=== PATIENT | male | born 1950 | race Caucasian/White ===

== ENCOUNTER → 2018-08-31 | Outpatient (CLI) | payer OTHER ==
[~2018-08-31] MED LIST: IOHEXOL 300 mgI/ML (OMNIPAQUE) 150 ML BTL IV ONE
== END ==
LOC: FIMAGING 09:37
PROVIDERS: ATTEND Surgery
DX: I71.4 Abdominal aortic aneurysm, without rupture (principal); K42.9 Umbilical hernia without obstruction or gangrene
CPT/HCPCS: 74175; Q9967; 82565-PO

== ENCOUNTER → 2018-09-13 | Outpatient (CLI) | payer OTHER | LOC: FIMAGING 11:55 | PROVIDERS: ATTEND Surgery | DX: I71.4 Abdominal aortic aneurysm, without rupture (principal) ==

== ENCOUNTER 2018-11-10 10:25 | Inpatient (IN) | payer OTHER ==
--- NOTE | 2018-11-03 10:16 | GHP ---
[f rep st] PREOP HISTORY AND PHYSICAL DATE OF ADMISSION: 11/10/2018 CHIEF COMPLAINT: Abdominal aortic aneurysm. HISTORY OF PRESENT ILLNESS: The patient is a 67-year-old male with a history of aortic and mitral va lve replacements, who presents for surgical evaluation of a AAA that was incidentally found on abdomi nal CT scan for a ventral hernia. The CT scan shows an infrarenal AAA measuring 7.6 x 7.6 cm. He gilman s seen Dr. Cerda, who believes he is a candidate for endovascular repair. In addition to the patient's 2 cardiac valve replacements, he also has a cardiac history of atrial fibrillation. He takes Coumad in. He denies abdominal pain, chest pain, or shortness of breath. PAST MEDICAL HISTORY: Peripheral vascular disease, atrial fibrillation. PAST SURGICAL HISTORY: Aortic valve replacement, mitral valve replacement, cholecystectomy, femoral- popliteal bypass graft. MEDICATIONS: Coumadin 5 mg. The patient also takes Flomax, Bentyl, gabapentin, and triamcinolone cr eam. ALLERGIES: No known drug allergies. SOCIAL HISTORY: This patient is a nonsmoker. He drinks alcohol occasionally. REVIEW OF SYSTEMS: Ten-point review of systems was performed and is negative, aside from what is in the HPI. PHYSICAL EXAMINATION: GENERAL: Well appearing, well dressed, 67-year-old male in no acute distress. HEENT: Normocephalic, atraumatic. No gross hearing deficits. Mucous membranes moist. Pupils are equal and round. NECK: Supple, trachea is midline, no carotid bruits. CARDIAC: Irregularly irreg ular, mid-systolic click murmur. CHEST: Clear to auscultation bilaterally, no crackles, rales or rh onchi. ABDOMEN: Obese, soft, nondistended, nontender, supraumbilical ventral hernia present. No pa lpable pulsatile mass. INTEGUMENTARY: Warm and dry, no rashes or jaundice. MUSCULOSKELETAL: Moves all extremities equally. PSYCHIATRIC: Appropriate mood and affect. NEUROLOGIC: Alert and oriente d x3. IMPRESSION AND PLAN: The patient is a 67-year-old male with a 7.6 x 7.6 cm infrarenal abdominal aort ic aneurysm that needs to be repaired. He is a candidate for endovascular repair. He has received c ardiac clearance prior to surgery. 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 We have discussed all risks and options. Risks of surgery include, but are not limited to, infection, bleeding, need for open repair, aneurysm rupture, heart attack, and . Patient understands and wishes to procee d. We will proceed with bilateral femoral artery exposures for endovascular abdominal aortic aneurys m repair. /[id number]/MODL
[2018-11-10] MEDS ORDERED: ceFAZolin 2 GM/DEXTROSE 100 ML IV ONE (10:44)
[2018-11-10] MEDS ORDERED: LR 1,000 ML IV ONE (10:47)
[2018-11-10 11:38] LABS: INR 1.16 (0.83-1.16); PROTIME(PATIENT) 14.3 SEC (12.0-15.0)
--- NOTE | 2018-11-10 12:00 | PDHPUP ---
History & Physical Update H&P update statement: This history and physical update is based on an assessment of the patient which was completed after admission or registration (within 24 hours), but prior to the surgery/procedure. H&P update: H&P reviewed & patient examined, no change in patient's condition since H&P completed
[2018-11-10] MEDS ORDERED: IOPAMIDOL (ISOVUE-300) 100 ML BTL ONE ×2 (12:43→17:43)
[2018-11-10] MEDS ORDERED: THROMBIN (BOVINE) 20,000 UNIT VIAL TP ONE (12:45)
[2018-11-10] MEDS ORDERED: BUPIVACAINE 0.5% 30 ML SDV ONE (12:45)
--- NOTE | 2018-11-10 12:45 | PDANEPAE ---
ANE History of Present Illness AAA ANE Past Medical History - Cardiovascular History Hx Hypertension: No Hx Arrhythmias: Yes Hx Chest Pain: No Hx Coronary Artery / Peripheral Vascular Disease: No Hx CHF / Valvular Disease: No Hx Palpitations: No Cardiovascular History Comment: MITRAL & AORTIC VALVE REPLACEMENTS. MILD ARRHYTHMIA - Pulmonary History Hx COPD: No Hx Asthma/Reactive Airway Disease: No Hx Recent Upper Respiratory Infection: No Hx Oxygen in Use at Home: No Hx Sleep Apnea: No Sleep Apnea Screening Result - Last Documented: Positive - Neurologic History Hx Cerebrovascular Accident: No Hx Seizures: No Hx Dementia: No - Endocrine History Hx Diabetes: No Obesity: no - Renal History Hx Renal Disorders: No Renal History Comment: L NON FUNCTIONING KIDNEY. R FUNCTIONING KIDNEY - Liver History Hx Hepatic Disorders: No Hepatic History Comment: SO - Neurological & Psychiatric Hx Hx Neurological and Psychiatric Disorders: No - Cancer History Hx Cancer: No - Congenital Disorder History Hx Congenital Disorders: No - GI History GERD: no Hx Gastrointestinal Disorders: No - Other Health History Other Health History: NEG - Chronic Pain History Chronic Pain: No - Surgical History Prior Surgeries: CATARACTS. CHOLECYSTECTOMY. HERNIA REPAIR X2. BYPASS ARTERIAL GRAFT TO RLE. MITRAL/AORTIC VALVE REPACEMENTS. 2000 & 2007 ANE Review of Systems Review of systems is: negative Review of Systems: - Exercise capacity METS (RN): 4 METS ANE Patient History - Allergies Allergies/Adverse Reactions: No Known Allergies Allergy (Unverified 03/18/16 13:20) - Home Medications Home medications: home medication list seen and reviewed Home Medications: Tamsulosin HCl [Flomax 0.4 MG (*)] 0.4 mg PO DAILY 03/18/16 [Last Taken 11/09/18 ] Warfarin Sodium [Coumadin 5MG (*)] 5 mg PO SUMOTUWETHFR 03/18/16 [Last Taken ] Warfarin Sodium [Coumadin 5MG (*)] 7.5 mg PO SA 03/18/16 [Last Taken 11/07/18] Aspirin 10/30/18 [Last Taken 11/03/18] Bentyl 10 MG (*) 10/30/18 [Last Taken 11/09/18] Gabapentin 10/30/18 [Last Taken 11/09/18] - NPO status NPO Since - Liquids (Date): 11/10/18 NPO Since - Liquids (Time): 06:30 NPO Since - Solids (Date): 11/09/18 NPO Since - Solids (Time): 19:30 - Anes Hx Anes Hx: no prior problems - Smoking Hx Smoking Status: Never smoked Marijuana use: No - Alcohol Use Alcohol Use: Rarely - Family Anes Hx Family Anes Hx: none ANE Labs/Vital Signs - Vital Signs Blood Pressure: 125/91 Heart Rate: 69 Respiratory Rate: 13 O2 Sat (%): 94 Height: 193.04 cm Weight: 111.13 kg ANE Physical Exam - Airway Neck exam: FROM Mallampati Score: Class 2 Mouth exam: normal dental/mouth exam - Pulmonary Pulmonary: no respiratory distress, clear to auscultation - Cardiovascular Cardiovascular: regular rate and rhythym, no murmur, rub, or gallop - ASA Status ASA Status: III ANE Anesthesia Plan Anesthesia Plan: general endotracheal anesthesia Lines/Monitors: arterial line, central line
[2018-11-10] MEDS ORDERED: MIDAZOLAM 2 MG/2 ML VIAL IVP ONE (12:48)
[2018-11-10] MEDS ORDERED: PROPOFOL 200 MG/20 ML VIAL ONE (13:16)
[2018-11-10] MEDS ORDERED: fentaNYL 100 MCG/2 ML INJ ONE ×2 (13:16→14:57)
[2018-11-10] MEDS ORDERED: ROCURONIUM 50 MG/5 ML VIAL ONE (13:17)
[2018-11-10] MEDS ORDERED: LIDOCAINE 2% 5 ML SDV ONE (13:17)
[2018-11-10] MEDS ORDERED: MIDAZOLAM 2 MG/2 ML VIAL ONE (13:38)
[2018-11-10] MEDS ORDERED: HEPARIN 10,000 UNIT/10 ML MDV (1,000 UNIT/ML) ONE (15:19)
[2018-11-10] MEDS ORDERED: ONDANSETRON 4 MG/2 ML VIAL ONE (17:15)
[2018-11-10] MEDS ORDERED: DEXAMETHASONE 4 MG/ML VIAL ONE (17:15)
[2018-11-10] MEDS ORDERED: PROTAMINE SULFATE 50 MG/5 ML VIAL IVP ONE (18:48)
[2018-11-10] MEDS ORDERED: LACTULOSE 20 GM/30 ML UDCUP PO PRN (19:02)
[2018-11-10] MEDS ORDERED: POLYETHYLENE GLYCOL 3350 17 GM PKT PO PRN (19:02)
[2018-11-10] MEDS ORDERED: BISACODYL 10 MG SUPP PR PRN (19:02)
[2018-11-10] MEDS ORDERED: MAGNESIUM HYDROXIDE 30 ML UDCUP PO PRN (19:02)
[2018-11-10] MEDS ORDERED: ONDANSETRON DISINTEGRATING 4 MG TAB PO PRN (19:02)
--- NOTE | 2018-11-10 19:25 | PDRADPN ---
Radiology Procedure Note Date of Procedure: 11/10/18 Radiologist: Mami Cerda Anesthesia: GET(General Endotracheal) Pre-op Diagnosis: AAA Post-op Diagnosis: SAME Indication: 7.5cm aneurysm Procedure: Stentgraft repair with anchors Finding(s): challenging anatomy. Inf/Abcess present in the surg proc area at time of surgery?: No
[2018-11-10] MEDS ORDERED: LR 500 ML IV PRN (19:41)
[2018-11-10] MEDS ORDERED: HYDROmorphONE/DILAUDID 1 MG/ML INJ IVP PRN (19:41)
[2018-11-10] MEDS ORDERED: epHEDrine SULFATE 10 MG/ML SYR IVP PRN (19:41)
[2018-11-10] MEDS ORDERED: ONDANSETRON 4 MG/2 ML VIAL IVP PRN (19:41)
[2018-11-10] MEDS ORDERED: NALOXONE HCL 0.4 MG/ML INJ IVP PRN (19:41)
--- NOTE | 2018-11-10 19:44 | POSTANESTH ---
Post Anesthetic Evaluation Cardiovascular Status: Normal, Stable Respiratory Status: Normal, Stable Level of Consciousness/Mental Status: Can Participate in Eval Pain Control: Adequate, Prn Tx Ordered Nausea/Vomiting Control: Adequate, Prn Tx Ordered Complications Possibly Related to Anesthesia: None Noted
[2018-11-10] MEDS ORDERED: NS 1,000 ML IV SCH (19:45)
[2018-11-10] MEDS: fentaNYL 100 MCG/2 ML INJ IVP PRN ×2 (20:23→20:55)
[2018-11-10] MEDS: NS 1,000 ML IV SCH (20:56)
--- NOTE | 2018-11-10 21:00 | PDMN ---
Medical Necessity Medical necessity: Pt meets IP criteria as of 11/10/2018 per MD and [facility] [place] S-131 ( Abdominal Aortic Aneurysm, Endovascular Repair); Medicare IP only procedure.
[2018-11-10] MEDS: HYDROmorphONE/DILAUDID 1 MG/ML INJ IVP PRN ×2 (21:41→23:39)
[2018-11-10] MEDS: ONDANSETRON 4 MG/2 ML VIAL IVP PRN (21:50)
[2018-11-10] MEDS: SENNOSIDES/DOCUSATE SODIUM TAB PO SCH (23:09)
--- NOTE | 2018-11-11 00:17 | PDGENHP ---
History and Physical - Chief Complaint AAA repair - History of Present Illness 67 yo M w/ hx of AF, mechanical mitral and aortic valve replacements, and AAA admitted for AAA repair. Hospital medicine is consulted for pedro pablo-operative management. Per report, the patient experienced about 1 L EBL during the procedure and did have intra-procedural hypotension. A post-procedure Hgb was 12.2; Hgb was 15.1 prior to surgery. During my evaluation the patient has normal blood pressure and heart rate. He is in atrial fibrillation with a pulse in the 50s. He denies symptoms aside from mild back pain. Bilateral groin sites do not demonstrate evidence of bleeding or hematoma. Of note, his last dose of anticoagulation was Lovenox on evening. His usual goal INR is 2.5-3.5 for hx of mechanical AV and MV. He currently denies chest pain. Case discussed with Dr. Mcgill; records reviewed and summarized above. History Information - Allergies/Home Medication List Allergies/Adverse Reactions: No Known Allergies Allergy (Unverified 03/18/16 13:20) Home Medications: Tamsulosin HCl [Flomax 0.4 MG (*)] 0.4 mg PO DAILY 03/18/16 [Last Taken 11/09/18 ] Warfarin Sodium [Coumadin 5MG (*)] 5 mg PO SUMOTUWETHSA@16 03/18/16 [Last Taken 11/06/18] Warfarin Sodium [Coumadin 5MG (*)] 7.5 mg PO FR@16 03/18/16 [Last Taken 11/03/18 ] Bentyl 10 MG (*) 20 mg PO DAILY PRN 10/30/18 [Last Taken Unknown] Gabapentin [Neurontin 300 MG (*)] 300 mg PO BID 10/30/18 [Last Taken 11/09/18] Enoxaparin [Lovenox 120 MG (*)] 120 mg SQ BID 11/10/18 [Last Taken 11/09/18] I have personally reviewed and updated: family history, medical history - Past Medical History atrial fibrillation - Surgical History Additional surgical history: Mechanical aortic valve 2000. Mechanical mitral valve 2010. AAA repair 11/10/18 - Family History Positive for: CAD - Social History Smoking Status: Never smoked Alcohol Use: Rarely Review of Systems Review of Systems: ROS: 10pt was reviewed & negative except for what was stated in HPI & below Physical Exam Physical Exam: Temp Pulse Resp BP Pulse Ox 36.4 C 55 L 13 127/53 H 94 11/10/18 23:30 11/10/18 23:30 11/10/18 23:30 11/10/18 23:30 11/10/18 23:30 O2 (L/minute) 4 Constitutional: appears nourished Eyes: PERRL, EOMI, icteric sclera Ears, Nose, Mouth, Throat: moist mucous membranes, no oral mucosal ulcers Cardiovascular: irregularly irregular, other (Mechanical heart sounds) Respiratory: no respiratory distress, clear to auscultation Gastrointestinal: normoactive bowel sounds, soft, non-tender abdomen Skin: warm, other (Bilateral groin sites without signs of bleeding or hematoma) Musculoskeletal: full muscle strength, no muscle tenderness Neurologic: AAOx3, CN II-XII Intact Psychiatric: interacting appropriately, not anxious Lab Data & Imaging Review 11/10/18 18:52 11/10/18 18:52 Hgb 12.2 g/dL (13.7-17.5) L 11/10/18 18:52 Hct 38.6 % (40.0-51.0) L 11/10/18 18:52 PT 14.3 SEC (12.0-15.0) 11/10/18 11:15 INR 1.16 (0.83-1.16) 11/10/18 11:15 Sodium 135 mEq/L (135-145) 11/10/18 18:52 Potassium 5.0 mEq/L (3.5-5.2) 11/10/18 18:52 Chloride 108 mEq/L (97-110) 11/10/18 18:52 Carbon Dioxide 23 mEq/l (22-31) 11/10/18 18:52 Anion Gap 4 mEq/L (6-14) L 11/10/18 18:52 BUN 20 mg/dL (7-23) 11/10/18 18:52 Creatinine 1.2 mg/dL (0.7-1.3) 11/10/18 18:52 Estimated GFR 60 11/10/18 18:52 Glucose 123 mg/dL (70-100) H 11/10/18 18:52 Calcium 7.4 mg/dL (8.5-10.4) L 11/10/18 18:52 Total Bilirubin 0.5 mg/dL (0.1-1.4) 11/10/18 18:52 AST 37 IU/L (17-59) 11/10/18 18:52 ALT 44 IU/L (21-72) 11/10/18 18:52 Alkaline Phosphatase 63 IU/L (38-126) 11/10/18 18:52 Total Protein 5.8 g/dL (6.3-8.2) L 11/10/18 18:52 Albumin 2.7 g/dL (3.5-5.0) L 11/10/18 18:52 Patient ABO/Rh O POSITIVE 11/06/18 11:10 Antibody Screen NEGATIVE 11/06/18 11:10 Imaging Review: Imaging Impressions Vascular Stent Procedure 11/10/18 00:00 Impression: 1. Stent-graft repair of infrarenal abdominal aortic aneurysm using 4-piece Endurant device, as above. 2. Deployment of 6 aortic anchors. 3. Challenging case to obtain seal because of anatomy. Abdominal Angiography 11/10/18 13:00 Impression: 1. Stent-graft repair of infrarenal abdominal aortic aneurysm using 4-piece Endurant device, as above. 2. Deployment of 6 aortic anchors. 3. Challenging case to obtain seal because of anatomy. Visualized and Interpreted EKG results: Yes EKG Interpretation: Positive for: other (Afib) Assessment & Plan Assessment: 67 yo M w/ hx of AF, mechanical mitral and aortic valve replacements, and AAA admitted for AAA repair. Plan: 1. AAA s/p repair - S/p stent-graft repair of infrarenal abdominal aortic aneurysm using 4-piece Endurant device on 11/[address] Cerda. He did suffer from intra-procedural hypotension but has been hemodynamically stable since arrival to the ICU. - Management per IR - Currently hemodynamically stable - Repeat CBC in the morning as long as clinically stable 2. Hx mechanical AV and MV - Patient usually maintained on warfarin with a goal INR of 2.5-3.5. This has been on hold since 11/03. He has been bridged with therapeutic Lovenox since with last dose of this PM. It is strongly indicated to restart therapeutic anticoagulation as soon as possible. - Will plan on restarting Lovenox tomorrow morning, will discuss with Dr. Cerda - Also reasonable to restart warfarin, will ask pharmacy to dose 3. Hx AF - Currently rate controlled without medication. - Monitor on telemetry Diet - Regular Code - Full PPx - SCDs, therapeutic AC Dispo - Admit under inpatient status
[2018-11-11] MEDS: HYDROmorphONE/DILAUDID 1 MG/ML INJ IVP PRN ×3 (01:13→14:55)
[2018-11-11 04:50] LABS: PLATELET COUNT 167 10^3/uL (150-400)
[2018-11-11] MEDS: NS 1,000 ML IV SCH (04:50)
[2018-11-11 06:00] LABS: INR 1.17 (0.83-1.16); PROTIME(PATIENT) 14.4 SEC (12.0-15.0)
[2018-11-11] MEDS: OXYCODONE/APAP 5/325 TAB PO PRN ×4 (09:00→22:02)
[2018-11-11] MEDS: SENNOSIDES/DOCUSATE SODIUM TAB PO SCH ×2 (09:55→22:03)
[2018-11-11] MEDS: ENOXAPARIN 120 MG/0.8 ML SYR SC SCH ×2 (09:55→22:02)
--- NOTE | 2018-11-11 12:42 | HOSPPROG ---
Hospitalist Progress Note Assessment/Plan: 67 yo M w/ hx of AF, mechanical mitral and aortic valve replacements, and AAA admitted for AAA repair. #AAA s/p repair: S/p stent-graft repair of infrarenal abdominal aortic aneurysm using 4-piece Endurant device on 11/[address] Cerda. He did suffer from intra- procedural hypotension but has been hemodynamically stable since. - Management per IR - PT/OT #Hx mechanical AV and MV - Restart anticoagulation today w/lovenox bridge to warfarin with INR goal 2.5-3.5 - Recheck H/H in AM #Chronic atrial fibrillation: Rates controlled. - Anticoagulation as above #Chest pain: Non-ischemic ECG. Tender to palpation - likely MSK. Diet - Regular Code - Full PPx - therapeutic AC Dispo - Switch to inpatient, transfer to floor Subjective: Back is sore. Groin sites hurt a little but nothing impressive. He is having some chest pain that hurts when he pushes his chest. Objective: Vital Signs Temp Pulse Resp BP Pulse Ox 36.4 C 71 19 136/78 H 94 11/11/18 07:00 11/11/18 12:00 11/11/18 12:00 11/11/18 12:00 11/11/18 12:00 Laboratory Results 11/11/18 04:22 11/11/18 04:22 11/10/18 11/11/18 11/12/18 05:59 05:59 05:59 Intake Total 875 Output Total 1725 450 Balance -850 -450 PT 14.4 SEC (12.0-15.0) 11/11/18 04:22 INR 1.17 (0.83-1.16) H 11/11/18 04:22 - Physical Exam Constitutional: no apparent distress Eyes: PERRL, anicteric sclera, EOMI Ears, Nose, Mouth, Throat: moist mucous membranes, hearing normal, ears appear normal, no oral mucosal ulcers Cardiovascular: systolic murmur (audible clicks), irregularly irregular, No JVD , No edema Respiratory: no respiratory distress, no rales or rhonchi, clear to auscultation Gastrointestinal: normoactive bowel sounds, soft, non-tender abdomen, no palpable masses Genitourinary: no bladder fullness, no bladder tenderness, no renal bruits Skin: no rashes or abrasions, no fluctuance, no induration Musculoskeletal: full muscle strength, no muscle tenderness, normal joint ROM Neurologic: AAOx3 Psychiatric: interacting appropriately ICD10 Worksheet Patient Problems: Problems Problem Status Onset Cellulitis of right lower extremity Acute Mass of right thigh Acute
--- NOTE | 2018-11-11 12:42 | ASMTCMCOM ---
CM Note CM Note Notes: Pt is a 67 yo M who presents with Abdominal Aoritc Aneurysm and underwent endovascular repair. Pt's family at bedside. PT/OT ordered. Discharge needs TBD at this time, CM to follow. Plan: TBD Date Signed: 11/11/2018 12:41 PM Electronically Signed By:MITRA Barba
[2018-11-11] MEDS: ONDANSETRON 4 MG/2 ML VIAL IVP PRN (14:56)
--- NOTE | 2018-11-11 15:27 | CPEKG ---
Test Reason : OPEN Blood Pressure : / mmHG Vent. Rate : 062 BPM Atrial Rate : 000 BPM P-R Int : 276 ms QRS Dur : 118 ms QT Int : 438 ms P-R-T Axes : 000 049 073 degrees QTc Int : 445 ms Atrial fibrillation Nonspecific intraventricular conduction delay Low voltage, extremity leads Confirmed by Tammie Yuen ([id number]) on 11/11/2018 3:27:18 PM Referred By: Mami Cerda Confirmed By:Tammie Yuen
[2018-11-11] MEDS ORDERED: WARFARIN SODIUM 7.5 MG TAB PO SCH (16:00)
[2018-11-11] MEDS: GABAPENTIN 300 MG CAP PO SCH (22:02)
[2018-11-12] MEDS: OXYCODONE/APAP 5/325 TAB PO PRN (02:46)
[2018-11-12 05:31] LABS: INR 1.22 (0.83-1.16); PROTIME(PATIENT) 14.9 SEC (12.0-15.0)
[2018-11-12] MEDS ORDERED: TAMSULOSIN HCL 0.4 MG CAP PO SCH (09:00)
[2018-11-12] MEDS: SENNOSIDES/DOCUSATE SODIUM TAB PO SCH (09:52)
[2018-11-12] MEDS: GABAPENTIN 300 MG CAP PO SCH (09:52)
[2018-11-12] MEDS: ENOXAPARIN 120 MG/0.8 ML SYR SC SCH (09:52)
[2018-11-12 11:49] VITALS: BP 139/77
--- NOTE | 2018-11-12 13:49 | PDDCSUM ---
Discharge Summary Discharge Summary: Date of Admission: 11/10/2018 Date of Discharge: 11/12/2018 Procedures: 1. Bilateral femoral cutdowns (Dr Gregorio Pena) 2. Endovascular stent-graft repair of infrarenal AAA using 4-piece Endurant device with deployment of 6 aortic anchors (Dr Mami Cerda) 3. Endotracheal intubation Discharge Diagnoses: 1. Infrarenal AAA s/p endovascular repair 2. Intra-operative hypotension, resolved 3. Urinary retention, resolved 4. Acute respiratory failure, resolved 5. Mechanical aortic and mitral valves on chronic anticoagulation 6. Chronic atrial fibrillation 7. Mild post-operative anemia 8. Peripheral vascular disease s/p remote femoral-popliteal bypass graft 9. Ventral hernia Brief Hospital Course: 67 yo M w/ hx of AF, mechanical mitral and aortic valve replacements, and AAA ( infrarenal, 7.6x7.6cm) that was incidentally found on evaluation of a ventral hernia who was admitted for AAA repair. He was felt to be a candidate for endovascular repair. He was bridged off his warfarin. He underwent above listed procedure with Dr Cerda on 11/10. The case was challenging due to his anatomy and lasted about 6 hours. Intra-operatively he developed transient hypotension and bradycardia. These resolved once he was admitted to the ICU. He was extubated successfully and weaned off supplemental oxygen. His peter was removed and he was urinating spontaneously. Lovenox and warfarin were restarted on 11/11/2018. He did not develop any bleeding and his hematocrit remained stable. PT and OT cleared him for home. He was given prescription for Lovenox bridge. He was tolerating PO and moving his bowels prior to discharge. Medications: Please refer to EMR for complete list. I wrote him prescriptions for Lovenox 120mg subQ BID x7 days as well as Percocet 5/325mg Q6h PRN #12 with 0 refills. Follow Up Plan: 1. Dr Pena within 1 week for staple removal and surgical incision site follow up 2. Routine INR checks to determine when safe to discontinue lovenox Physical Exam: Vitals and telemetry reviewed, afebrile and no significant arrhythmias. Alert and oriented, incision sites at groin c/d/i without hematoma or bruit, irregularly irregular rhythm with controlled rates, lungs clear, abdomen soft and nt, LLE edema (chronic).
--- NOTE | 2018-11-12 14:59 | ASMTDCNOTE ---
Case Management Discharge Discharge Order Complete? Answers: Yes Patient to Obtain Answers: Independently Medications Transportation Arranged Answers: Family/Friends Discharge Comments Notes: Patient medically cleared for independent discharge to home. No needs identified. CM available should other needs arise. Date Signed: 11/12/2018 02:58 PM Electronically Signed By:Radha Loredo RN
--- NOTE | 2018-11-13 22:35 | GOP ---
[f rep st] OPERATIVE REPORT DATE OF OPERATION: 11/10/2018 SURGEON: Gregorio Pena MD PREOPERATIVE DIAGNOSIS: Abdominal aortic aneurysm. POSTOPERATIVE DIAGNOSIS: Abdominal aortic aneurysm. PROCEDURE PERFORMED: 1. Bilateral common femoral artery exposures. 2. Bilateral common femoral artery repairs. FINDINGS: The patient was found to have large common femoral arteries bilaterally. On the right praveena e, the profunda femoris could not be identified. He had previous surgery on that side and a fair leodan unt of aneurysmal dilatation of the artery near the anastomosis. DESCRIPTION OF PROCEDURE: Patient was taken to the operating room where he received a satisfactory g eneral endotracheal anesthesia, placed in a supine position, prepped and draped in the usual sterile fashion. Bilateral vertical inguinal incisions were made, carried through the subcutaneous tissue. Hemostasis was obtained. The common femoral, profunda femoris and superficial femoral arteries were dissected free in the left groin and encircled with vessel loops. On the right side, the common femo ral artery was dissected free. It was fairly aneurysmal. There was a fair amount of scar tissue on the right side from his previous fem-fem bypass. The inguinal ligament was partially divided and the common femoral artery was encircled with vessel loops proximally and distally. After exposure, the procedure was turned over to Dr. Mami Cerda who performed an endovascular repair of the large AAA. Once that was completed, I removed the sheath and repaired the arterial openings. This was done bilatera lly with 4-0 Prolene mattress sutures. All vessels were flushed prior to completion of the closure. The flow was first established through the profunda femoris and then back down the main superficial femoral artery bilaterally. The patient had palpable pedal pulses after opening up the flow. Hemost asis was assured. Heparin was reversed with protamine and hemostasis appeared to be adequate. Wound s were closed in layers using 2-0 Vicryl for the fascia, 3-0 Vicryl for the subcu, and skin deborah f or the skin. All layers infiltrated with 0.5% Marcaine. Taken to recovery room in good condition. There were no complications. /[id number]/MODL
== END 2018-11-12 15:28 | disposition home or self-care (01) | DRG 270 ==
LOC: FSGY 10:25 → F2N 19:02 → F1N 11-11 14:40
PROVIDERS: ADMIT Radiology Diagnostic Radiology; ATTEND Radiology Diagnostic Radiology
PROC: 04V00D6 (ICD-10-PCS; principal; 2018-11-10 13:15)
DX: I71.4 Abdominal aortic aneurysm, without rupture (principal); I73.9 Peripheral vascular disease, unspecified; J96.00 Acute respiratory failure, unspecified whether with hypoxia or hypercapnia; D62 Acute posthemorrhagic anemia; I95.89 Other hypotension; R33.9 Retention of urine, unspecified; K43.9 Ventral hernia without obstruction or gangrene; I48.2 Chronic atrial fibrillation; Z95.2 Presence of prosthetic heart valve; Z79.01 Long term (current) use of anticoagulants
CPT/HCPCS: 97161-GP; 97165-GO; C1725; C1768; C1769; C1894; J0690; J1100; J1170; J1644; J1650; J2250; J2405; J2704; J2720; J3010; Q9967

== ENCOUNTER → 2018-11-16 | Outpatient (CLI) | payer OTHER | LOC: FIMAGING 15:18 | PROVIDERS: ATTEND Surgery | DX: I72.9 Aneurysm of unspecified site (principal); N50.1 Vascular disorders of male genital organs ==

== ENCOUNTER 2018-11-20 19:26 | Inpatient (IN) | payer OTHER ==
[~2018-11-20 19:26] MED LIST changes: -IOHEXOL 300 mgI/ML (OMNIPAQUE) 150 ML BTL IV ONE; +IOPAMIDOL (ISOVUE 370) 100 ML BTL IV ONE
[2018-11-20] MEDS ORDERED: IOPAMIDOL (ISOVUE 370) 100 ML BTL IV ONE (19:36)
--- NOTE | 2018-11-20 19:41 | EDPHY ---
H & P Time Seen by Provider: 11/20/18 19:27 HPI/ROS: CHIEF COMPLAINT: Referred to ED for abnormal outpatient CT HISTORY OF PRESENT ILLNESS: The patient has a history of a recently stented abdominal aortic aneurysm. The patient had the procedure done approximately 11 days ago. The patient tells me that immediately following the procedure he was having complaints of low back pain. The patient was discharged home and ultimately had a CT scan today which demonstrated retrograde dissection from the graft going into the thoracic aorta. Both Dr. Cristobal Pena and Dr. Cerda were notified. The patient was referred to the emergency department for a stat CT angiogram of the chest abdomen and pelvis. The patient arrives today and states he has had no change in his acute back pain. He recently resumed his anticoagulation. He denies any lower extremity numbness or weakness. REVIEW OF SYSTEMS: A comprehensive 10 point review of systems is otherwise negative aside from elements mentioned in the history of present illness. Source: Patient Exam Limitations: No limitations - Medical/Surgical History Hx Asthma: No Hx Chronic Respiratory Disease: No Hx Diabetes: No Hx Cardiac Disease: No Hx Renal Disease: No Hx Cirrhosis: No Hx Alcoholism: No Hx HIV/AIDS: No Hx Splenectomy or Spleen Trauma: No Other PMH: Hx: MRSA, cataract surgery, heart valves replaced, gallbaldder surgery. one kidney atrophied (L). r veingraft. afib - Social History Smoking Status: Never smoked - Physical Exam Exam: General Appearance: Alert, no distress Eyes: Pupils equal and round no pallor or injection ENT, Mouth: Mucous membranes moist Respiratory: There are no retractions, lungs are clear to auscultation Cardiovascular: Regular rate and rhythm Gastrointestinal: Ventral hernia, protuberant abdomen, no focal tenderness appreciated Neurological: 5/5 strength noted all 4 extremities Skin: Surgical incision sites are clean dry and intact Musculoskeletal: Neck is supple nontender Extremities: symmetrical, full range of motion, brisk pulses all 4 extremities Psychiatric: Patient is oriented X 3, there is no agitation Constitutional: Initial Vital Signs Temperature (C) 36.9 C 11/20/18 19:35 Heart Rate 78 11/20/18 19:35 Respiratory Rate 18 11/20/18 19:35 Blood Pressure 160/78 H 11/20/18 19:35 O2 Sat (%) 96 11/20/18 19:35 O2 Delivery Mode Room Air Allergies/Adverse Reactions: No Known Allergies Allergy (Unverified 11/20/18 19:40) Home Medications: Medication Instructions Recorded Tamsulosin HCl [Flomax 0.4 MG (*)] 0.4 mg PO DAILY 03/18/16 Warfarin Sodium [Coumadin 5MG (*)] 5 mg PO SUMOTUWETHFR@16 03/18/16 Warfarin Sodium [Coumadin 5MG (*)] 7.5 mg PO SA@16 03/18/16 Bentyl 10 MG (*) 20 mg PO DAILY PRN 10/30/18 Gabapentin [Neurontin 300 MG (*)] 300 mg PO BID 10/30/18 Enoxaparin [Lovenox 120 MG (*)] 120 mg SQ BID 11/10/18 oxyCODONE/APAP 5/325 [Percocet 1 tab PO Q6H PRN #12 tab 11/12/18 5/325 (*)] Medical Decision Making - Diagnostics EKG Interpretation: EKG: Complete interpretation has been separately recorded in the [email or web address] archive. Summary impression: Atrial fibrillation, rate 77, nonspecific T-wave changes noted Imaging Results: Imaging Impressions Abdomen/Pelvis CTA 11/20/18 18:00 Impression: 1. Retrograde dissection from just on top of the aortic stent-graft into the thoracic aorta. There is tight stenosis of the true lumen at the thoracoabdominal junction. 2. Small residual type II endoleak in the posterior abdominal aortic sac. Recommendation: 1. In-hospital stay with blood pressure monitoring. 2. Full CT scan of the chest and abdomen and pelvis for further work up. 3. Control of the dissection might be amenable with thoracic stent-graft placement, in addition to medical management. This was discussed with Dr. Gregorio Pena. E:autumn ED Course/Re-evaluation: Patient presents to the ED with a recently diagnosed retrograde dissection following an endovascular stent repair of an abdominal aortic aneurysm. The patient has brisk pulses noted in all 4 extremities. His blood pressure is well controlled. He has no acute complaints. The patient is taken for stat CT angiogram of the chest abdomen and pelvis. CT angiogram of the chest abdomen pelvis demonstrated [place] B type dissection which originates likely from the graft and extends to superiorly to the level of the left subclavian. CT images reviewed by myself and discussed with radiologist Dr. Sixto Frazier. I have paged the cardiothoracic surgeon and Dr. Cerda from cardiothoracic surgery. I spoke with both the cardiothoracic surgeon and interventional radiologist. At this point time they recommend admission to the intensive care unit for blood pressure control. They do not recommend reversing his Coumadin. They will consider whether a cuff type stent is indicated in the morning. Consultation is made with Dr. Julieta Mcgill from the hospitalist service who will admit the patient primarily. Differential Diagnosis: Differential diagnosis considered includes abdominal aortic aneurysm rupture, dissection Critical Care Time: Critical care time exclusive of procedures and exclusive of the PA's time was 45 minutes, performed by myself, Anshul Venegas MD. Patient presents to the ED with subacute back pain in the setting of a recent endovascular stent which has developed into a type B dissection. The patient will be admitted to the ICU for close observation and monitoring. - Data Points Laboratory Results: Laboratory Results 11/20/18 19:35 11/20/18 19:35 11/20/18 11/20/18 11/20/18 19:35 19:35 19:35 WBC 9.84 10^3/uL H 10^3/uL (3.80-9.50) RBC 3.79 10^6/uL L 10^6/uL (4.40-6.38) Hgb 10.7 g/dL L g/dL (13.7-17.5) Hct 34.7 % L % (40.0-51.0) MCV 91.6 fL fL (81.5-99.8) MCH 28.2 pg pg (27.9-34.1) MCHC 30.8 g/dL L g/dL (32.4-36.7) RDW 15.5 % H % (11.5-15.2) Plt Count 281 10^3/uL 10^3/uL (150-400) MPV 8.7 fL fL (8.7-11.7) Neut % (Auto) 73.1 % % (39.3-74.2) Lymph % (Auto) 9.1 % L % (15.0-45.0) [place] % (Auto) 10.0 % % (4.5-13.0) Eos % (Auto) 5.3 % % (0.6-7.6) Baso % (Auto) 0.9 % % (0.3-1.7) Nucleat RBC Rel Count 0.0 % % (0.0-0.2) Absolute Neuts (auto) 7.19 10^3/uL H 10^3/uL (1.70-6.50) Absolute Lymphs (auto) 0.90 10^3/uL L 10^3/uL (1.00-3.00) Absolute Monos (auto) 0.98 10^3/uL H 10^3/uL (0.30-0.80) Absolute Eos (auto) 0.52 10^3/uL H 10^3/uL (0.03-0.40) Absolute Basos (auto) 0.09 10^3/uL 10^3/uL (0.02-0.10) Absolute Nucleated RBC 0.00 10^3/uL 10^3/uL (0-0.01) Immature Gran % 1.6 % H % (0.0-1.1) Immature Gran # 0.16 10^3/uL H 10^3/uL (0.00-0.10) PT 25.8 SEC H SEC (12.0-15.0) INR 2.50 H (0.83-1.16) APTT 74.2 SEC H SEC (23.0-38.0) Sodium 135 mEq/L mEq/L (135-145) Potassium 4.1 mEq/L mEq/L (3.5-5.2) Chloride 104 mEq/L mEq/L (97-110) Carbon Dioxide 23 mEq/l mEq/l (22-31) Anion Gap 8 mEq/L mEq/L (6-14) BUN 21 mg/dL mg/dL (7-23) Creatinine 1.3 mg/dL mg/dL (0.7-1.3) Estimated GFR 55 Glucose 116 mg/dL H mg/dL (70-100) Calcium 8.4 mg/dL L mg/dL (8.5-10.4) Medications Given: Discontinued Medications Sodium Chloride (Ns) 500 mls @ 0 mls/hr IV EDNOW ONE; Wide Open PRN Reason: Protocol Stop: 11/20/18 20:20 Last Admin: 11/20/18 20:19 Dose: 500 mls Departure - Departure Disposition: [facility] Clinical Impression: Dissecting aneurysm of thoracic aorta, [place] type B, Aneurysm of infrarenal abdominal aorta Condition: Fair
[2018-11-20 19:47] LABS: PLATELET COUNT 281 10^3/uL (150-400)
[2018-11-20 19:56] LABS: INR 2.5 (0.83-1.16); PROTIME(PATIENT) 25.8 SEC (12.0-15.0)
--- NOTE | 2018-11-20 19:57 | CPEKG ---
Test Reason : OPEN Blood Pressure : / mmHG Vent. Rate : 077 BPM Atrial Rate : 000 BPM P-R Int : 194 ms QRS Dur : 106 ms QT Int : 393 ms P-R-T Axes : 000 042 078 degrees QTc Int : 445 ms Atrial fibrillation Borderline ST depression, diffuse leads Confirmed by Anshul Venegas ([id number]) on 11/20/2018 7:57:41 PM Referred By: Anshul Venegas Confirmed By:Anshul Venegas
[2018-11-20] MEDS ORDERED: NS 500 ML IV ONE (20:19)
[2018-11-20] MEDS ORDERED: ONDANSETRON 4 MG/2 ML VIAL IVP PRN (20:36)
[2018-11-20] MEDS ORDERED: ACETAMINOPHEN 325 MG TAB PO PRN (20:36)
[2018-11-20] MEDS ORDERED: PROMETHAZINE HCL 25 MG/ML INJ IVP PRN (20:36)
[2018-11-20] MEDS ORDERED: LORazepam 0.5 MG TAB PO PRN (20:36)
[2018-11-20] MEDS ORDERED: ONDANSETRON DISINTEGRATING 4 MG TAB PO PRN (20:36)
[2018-11-20] MEDS ORDERED: HYDROCODONE/APAP 5/325 TAB PO PRN (20:36)
[2018-11-20] MEDS ORDERED: oxyCODONE IR 5 MG TAB PO PRN (20:36)
[2018-11-20] MEDS ORDERED: HYDROmorphONE/DILAUDID 1 MG/ML INJ IVP PRN (20:36)
[2018-11-20] MEDS ORDERED: LORazepam 2 MG/ML INJ IVP PRN (20:36)
--- NOTE | 2018-11-20 21:13 | PDGENHP ---
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 At the time of my evaluation, patient notes that he has had the back pain since immediately after his endovascular AAA repair last week, and that prior to the procedure he did not have pain. He states that today for the first time, the pain seems slightly improved, although he notes that to improve the pain he has to lie on his left side. He has otherwise felt well for the most part, but has been more fatigued than usual. He has had a groin hematoma that has been followed since the procedure as well, and that has been improving he believes. He denies chest pain, sob, dizziness, near syncope, fever or chills , n/v. History Information - Allergies/Home Medication List Allergies/Adverse Reactions: No Known Allergies Allergy (Unverified 11/20/18 19:40) Home Medications: Tamsulosin HCl [Flomax 0.4 MG (*)] 0.4 mg PO DAILY 03/18/16 [Last Taken 11/20/18 ] Warfarin Sodium [Coumadin 5MG (*)] 5 mg PO SUMOTUWETHFR@16 03/18/16 [Last Taken 11/20/18] Warfarin Sodium [Coumadin 5MG (*)] 7.5 mg PO SA@16 03/18/16 [Last Taken 11/18/18 ] Bentyl 10 MG (*) 20 mg PO DAILY PRN 10/30/18 [Last Taken Unknown] Gabapentin [Neurontin 300 MG (*)] 300 mg PO BID 10/30/18 [Last Taken 11/20/18] Enoxaparin [Lovenox 120 MG (*)] 120 mg SQ BID 11/10/18 [Last Taken 11/18/18] I have personally reviewed and updated: family history, medical history, social history, surgical history - Past Medical History atrial fibrillation Additional medical history: VHD. AAA. PVD. BPH - Surgical History Reports: cholecystectomy Additional surgical history: Mechanical aortic valve 2000. Mechanical mitral valve 2010. AAA endovascular repair 11/10/18. fem pop bypass - Family History Positive for: CAD - Social History Smoking Status: Never smoked Alcohol Use: Rarely Drug Use: None Additional [place] history: [place] [address] [place] Review of Systems Review of Systems: ROS: 10pt was reviewed & negative except for what was stated in HPI & below Physical Exam Physical Exam: Temp Pulse Resp BP Pulse Ox 36.9 C 75 16 144/74 H 95 11/20/18 19:35 11/20/18 20:20 11/20/18 20:20 11/20/18 20:20 11/20/18 20:20 Constitutional: obese, uncomfortable Eyes: PERRL, anicteric sclera Ears, Nose, Mouth, Throat: moist mucous membranes, hearing normal Cardiovascular: regular rate and rhythym, systolic murmur, edema Respiratory: no respiratory distress, no rales or rhonchi Gastrointestinal: normoactive bowel sounds, soft, non-tender abdomen Genitourinary: no bladder tenderness Skin: warm, normal color Musculoskeletal: full muscle strength Neurologic: AAOx3 Psychiatric: interacting appropriately, not anxious, not encephalopathic Lab Data & Imaging Review 11/20/18 19:35 11/20/18 19:35 WBC 9.84 10^3/uL (3.80-9.50) H 11/20/18 19:35 RBC 3.79 10^6/uL (4.40-6.38) L 11/20/18 19:35 Hgb 10.7 g/dL (13.7-17.5) L 11/20/18 19:35 Hct 34.7 % (40.0-51.0) L 11/20/18 19:35 MCV 91.6 fL (81.5-99.8) 11/20/18 19:35 MCH 28.2 pg (27.9-34.1) 11/20/18 19:35 MCHC 30.8 g/dL (32.4-36.7) L 11/20/18 19:35 RDW 15.5 % (11.5-15.2) H 11/20/18 19:35 Plt Count 281 10^3/uL (150-400) 11/20/18 19:35 MPV 8.7 fL (8.7-11.7) 11/20/18 19:35 Neut % (Auto) 73.1 % (39.3-74.2) 11/20/18 19:35 Lymph % (Auto) 9.1 % (15.0-45.0) L 11/20/18 19:35 [place] % (Auto) 10.0 % (4.5-13.0) 11/20/18 19:35 Eos % (Auto) 5.3 % (0.6-7.6) 11/20/18 19:35 Baso % (Auto) 0.9 % (0.3-1.7) 11/20/18 19:35 Nucleat RBC Rel Count 0.0 % (0.0-0.2) 11/20/18 19:35 Absolute Neuts (auto) 7.19 10^3/uL (1.70-6.50) H 11/20/18 19:35 Absolute Lymphs (auto) 0.90 10^3/uL (1.00-3.00) L 11/20/18 19:35 Absolute Monos (auto) 0.98 10^3/uL (0.30-0.80) H 11/20/18 19:35 Absolute Eos (auto) 0.52 10^3/uL (0.03-0.40) H 11/20/18 19:35 Absolute Basos (auto) 0.09 10^3/uL (0.02-0.10) 11/20/18 19:35 Absolute Nucleated RBC 0.00 10^3/uL (0-0.01) 11/20/18 19:35 Immature Gran % 1.6 % (0.0-1.1) H 11/20/18 19:35 Immature Gran # 0.16 10^3/uL (0.00-0.10) H 11/20/18 19:35 PT 25.8 SEC (12.0-15.0) H 11/20/18 19:35 INR 2.50 (0.83-1.16) H 11/20/18 19:35 APTT 74.2 SEC (23.0-38.0) H 11/20/18 19:35 Sodium 135 mEq/L (135-145) 11/20/18 19:35 Potassium 4.1 mEq/L (3.5-5.2) 11/20/18 19:35 Chloride 104 mEq/L (97-110) 11/20/18 19:35 Carbon Dioxide 23 mEq/l (22-31) 11/20/18 19:35 Anion Gap 8 mEq/L (6-14) 11/20/18 19:35 BUN 21 mg/dL (7-23) 11/20/18 19:35 Creatinine 1.3 mg/dL (0.7-1.3) 11/20/18 19:35 Estimated GFR 55 11/20/18 19:35 Glucose 116 mg/dL (70-100) H 11/20/18 19:35 Calcium 8.4 mg/dL (8.5-10.4) L 11/20/18 19:35 Visualized and Interpreted imaging results: Yes Interpretation: CT c/a/p: dissection extending from just above the aortic graft through thoracic aorta to the left scv artery, no invovlement of great vessels Visualized and Interpreted EKG results: Yes EKG additional interpertation: a fib Assessment & Plan Assessment: Dissecting aneurysm of thoracic aorta, [place] type B (Acute) Aneurysm of infrarenal abdominal aorta (Acute) 68 yo M with hx of VHD, AF, AAA s/p endovascular repair on 11/10 presenting with back pain and found to have [place] B dissection # [place] B dissection: extending from immediately above recently placed graft to the left subclavian artery, small endoleak previously appreciated appears stable. CT surgery, IR, general surgery all aware and requesting hospitalist admission and medical management. Plan for ICU admission, aggressive BP management with goal BP < 120/80 overnight--started on nicardipine gtt for now for tight BP control. No current plan for surgery but will keep patient NPO after MN and hold warfarin until CT surgery evaluation complete. # back pain: likely due to above, pain is improving and patient would like to avoid narcotics if able, continue to monitor, pain meds prn # VHD: with mechanical mitral and aortic valves, no e/o acute decompensation currently, goal INR 2.5-3.5 and currently at goal--will not reverse for now as no plan for intervention, but warfarin not ordered for tomorrow until eval complete as above. # a fib: rate controlled, on AC as above, no rate controlling meds # IP status-high risk requiring ICU level care and monitoring, in addition to usual admission time, an additional 35 min critical care time spent in evaluation of imaging/labs and coordination of care with specialists/ER doctor as well as bedside evaluation and counseling of patient and his Patient new to my care. Old records reviewed and summarized as above. Further hx obtained from patients present at bedside.
[2018-11-20] MEDS ORDERED: niCARdipine/NACL 200 ML IV SCH (21:30)
[2018-11-20] MEDS: GABAPENTIN 300 MG CAP PO SCH (22:06)
[2018-11-20] MEDS ORDERED: METOPROLOL TARTRATE 5 MG/5 ML INJ IVP PRN (22:48)
[2018-11-20] MEDS ORDERED: ceFAZolin 2 GM/DEXTROSE 100 ML IV SCH (23:00)
--- NOTE | 2018-11-20 23:14 | SOAPPROG ---
SOAP Progress Note Assessment/Plan: Assessment: S/P AAA endvascular repair. Spontaneous retrograde dissection above stentgraft, to thoracic aorta. Major vessels originate from true lumen, which is tight at distal thoracic aorta. Dissection does not involve major aortic branch vessels. Back pain improved today compared to earlier. Plan: D/W imaging finding with Dr. Génesis cohn, who will officially consult on the patient tomorrow. Given lack of symptoms suggestive of ischemic risk to solid/visceral organs, continued medical management might be prudent. Retrograde dissection should in theory spontaneously resolve over time, with antegrade flow from true lumen. Considerations towards thoracic stentgraft vs surgical tack down of source of dissection would be prudent if patient develops signs of ischemia. 11/20/18 23:11 Subjective: Visited with patient. Discussed briefly CTA findings. Objective: Vital Signs Temp Pulse Resp BP Pulse Ox 36.8 C 79 23 H 106/51 L 90 L 11/20/18 21:43 11/20/18 23:00 11/20/18 23:00 11/20/18 23:00 11/20/18 23:00 11/19/18 11/20/18 11/21/18 05:59 05:59 05:59 Intake Total 500 Output Total 200 Balance 300 PT 25.8 SEC (12.0-15.0) H 11/20/18 19:35 INR 2.50 (0.83-1.16) H 11/20/18 19:35 No abd pain. LT groin cutdown site red and swollen, new c/t five days ago. RT groin hematoma much improved c/t five days ago, when it was aspirated. 2+ bilateral pedal pulses. ICD10 Worksheet Patient Problems: Problems Problem Status Onset Aneurysm of infrarenal abdominal aorta Acute Dissecting aneurysm of thoracic aorta, [place] type B Acute Cellulitis of right lower extremity Acute Mass of right thigh Acute
[2018-11-21 05:28] LABS: PLATELET COUNT 246 10^3/uL (150-400)
[2018-11-21 05:41] LABS: INR 2.74 (0.83-1.16); PROTIME(PATIENT) 27.6 SEC (12.0-15.0)
[2018-11-21] MEDS: ceFAZolin 2 GM/DEXTROSE 100 ML IV SCH ×3 (05:48→21:00)
--- NOTE | 2018-11-21 08:33 | GCON ---
[f rep st] CONSULTATION DATE OF CONSULTATION: 11/21/2018 REASON FOR CONSULTATION: Descending thoracic aortic dissection. HISTORY: The patient is a 68-year-old gentleman with a history of valvular heart disease and abdomin al aortic aneurysm who underwent stent grafting a little over a week ago for a large infrarenal abdom inal aortic aneurysm. At the time of procedure, it was noted that it was somewhat difficult due to t he angulation of the aorta and a short infrarenal neck. Nevertheless, the patient seemed to do well. There was initially a type 1 endoleak, but this was largely resolved by the end of the case. The p alexey was discharged home, but was complaining of some back pain following discharge. He managed th is on his own, but ultimately came back to the emergency department with back pain. He underwent a C T angiography which shows an aortic dissection from the top of the previously placed stent graft to t he left subclavian artery. I am asked to see the patient for recommendations regarding ongoing thera py. PAST MEDICAL HISTORY: Remarkable for the above described abdominal aortic aneurysm. He also has mec hanical mitral and aortic valves. He is maintained on Coumadin. He has atrial fibrillation. SOCIAL HISTORY: He is a nonsmoker who is . MEDICATIONS: At home include Flomax, warfarin, Bentyl, gabapentin and Lovenox. PHYSICAL EXAMINATION: GENERAL: Today, the patient is upright in the chair, having breakfast. He is in no acute distress. VITAL SIGNS: Blood pressure is 106/70. HEENT: Unremarkable. HEART: Tones are clear with notable valve click. LUNGS: Clear to auscultation. EXTREMITIES: Warm and well per fused. LAB AND X-RAY FINDINGS: Review of his laboratory studies showed creatinine ranges from 1.1 to 1.3. Review of his CT angiogram shows a tortuous aorta with dissection from the proximal part of the endog raft at the level of the renal arteries up to the left subclavian artery. There is flow in both the true and false lumen. The patient's single kidney on the right side is perfused through the true lum en. The celiac axis is also perfused through the true lumen. There is no evidence of extravasation or leak. IMPRESSION: Retrograde dissection following abdominal aortic aneurysm stent graft. There is no evid ence of limb ischemia or end-organ ischemia. His pain is markedly diminished. RECOMMENDATIONS: Because of the antegrade flow, I suspect this will ultimately heal since the tear m ost likely originates in the abdominal aorta. Emphasis on blood pressure control and pain control sh ould be the primary focus of therapy. I do not see any indication for surgical intervention. I disc ussed this at length with the patient who was greatly relieved and notes that he is feeling much bett er. I appreciate the opportunity to see the patient. /[id number]/MODL
[2018-11-21] MEDS: TAMSULOSIN HCL 0.4 MG CAP PO SCH (08:47)
[2018-11-21] MEDS: GABAPENTIN 300 MG CAP PO SCH ×2 (08:48→20:46)
[2018-11-21] MEDS ORDERED: DICYCLOMINE 20 MG TAB PO PRN (09:00)
[2018-11-21] MEDS: METOPROLOL TARTRATE 25 MG TAB PO SCH ×2 (11:40→21:05)
--- NOTE | 2018-11-21 13:04 | PDMN ---
Medical Necessity Medical necessity: Pt meets IP criteria per MD & MCG [facility] Cardiology; est los > 2 mn for eval/tx of [place] B dissection s/p endovascular repair of AAA; pt high risk, requiring close ICU monitoring w/aggressive BP management, Nicardine gtt & CT surgery eval; hx VHD, AFIB; per H&P & order 11/20/18
--- NOTE | 2018-11-21 15:24 | ASMTCMCOM ---
CM Note CM Note Notes: Pt is a 68 yo M, presentes with dehydration and urinary tract infection. Pt underwent AAA and review of CT found retrograde aortic tear. At this time, no therapies are ordered. No surgery planned at this time. is at bedside supportive. Pt was living independently with prior to admission; last discharged independently from [facility] on 11/12. CM to follow. Date Signed: 11/21/2018 03:24 PM Electronically Signed By:MITRA Barba
--- NOTE | 2018-11-21 15:56 | HOSPPROG ---
Hospitalist Progress Note Assessment/Plan: Dissecting aneurysm of thoracic aorta, [place] type B (Acute) Aneurysm of infrarenal abdominal aorta (Acute) 68 yo M with hx of VHD, AF, AAA s/p endovascular repair on 11/10 presenting with back pain and found to have [place] B dissection # [place] B dissection: - Extending from immediately above recently placed graft to the left subclavian artery, small endoleak previously appreciated appears stable. - CT surgery, IR consulted who recommend no surgical intervention, they believe will ultimately heal - Aggressive BP management with goal BP < 120/80, -started on nicardipine gtt, will initiate Metoprolol 12.5 mg BID and Amlodipine 10 mg qd today and attempt to wean Nicardipine gtt as tolerated # back pain: Improved, likely due to above, pain is improving and patient would like to avoid narcotics if able, continue to monitor, pain meds prn # VHD: with mechanical mitral and aortic valves, no e/o acute decompensation currently, goal INR 2.5-3.5 and currently at goal (2.7 this AM), will resume home coumadin given lack of surgical intervention # a fib: rate controlled, on AC as above, no rate controlling meds # IP status Subjective: Patient reports improved back pain this aM Objective: Vital Signs Temp Pulse Resp BP Pulse Ox 36.6 C 57 L 23 H 116/63 92 11/21/18 12:00 11/21/18 15:00 11/21/18 15:00 11/21/18 15:00 11/21/18 15:00 Laboratory Results 11/21/18 05:15 11/21/18 05:15 11/20/18 11/21/18 11/22/18 05:59 05:59 05:59 Intake Total 1615 300 Output Total 550 200 Balance 1065 100 PT 27.6 SEC (12.0-15.0) H 11/21/18 05:15 INR 2.74 (0.83-1.16) H 11/21/18 05:15 - Physical Exam Constitutional: no apparent distress Eyes: PERRL Ears, Nose, Mouth, Throat: moist mucous membranes Cardiovascular: regular rate and rhythym, systolic murmur Respiratory: no respiratory distress Gastrointestinal: soft, non-tender abdomen Skin: warm Musculoskeletal: full muscle strength Neurologic: AAOx3 Psychiatric: interacting appropriately ICD10 Worksheet Patient Problems: Problems Problem Status Onset Aneurysm of infrarenal abdominal aorta Acute Dissecting aneurysm of thoracic aorta, [place] type B Acute Cellulitis of right lower extremity Acute Mass of right thigh Acute
[2018-11-21] MEDS ORDERED: WARFARIN SODIUM 5 MG TAB PO SCH (16:00)
[2018-11-21] MEDS: WARFARIN SODIUM 5 MG TAB PO SCH (16:32)
--- NOTE | 2018-11-21 18:44 | SOAPPROG ---
SOAP Progress Note Assessment/Plan: Assessment: MUCH IMPROVED TODAY ON BLOOD PRESSURE MEDICATION/ BACK PAIN HAS RESOLVED/ PULSES ARE GOOD ABDOMEN SOFT NONTENDER EXTREMITIES BOTH GROINS HAVE MILD HEMATOMAS AND/OR SEROMA CHEST CLEAR COR REGULAR RHYTHM HEMATOCRIT DOWN TO 29 INR 2.74 Plan: CONTINUE CONSERVATIVE THERAPY/ LEAVE GROIN DONAVAN IN PLACE FOR ANOTHER WEEK 11/21/18 18:41 11/21/18 18:44 Objective: Vital Signs Temp Pulse Resp BP Pulse Ox 36.6 C 53 L 22 H 112/54 L 97 11/21/18 17:20 11/21/18 18:00 11/21/18 18:00 11/21/18 18:00 11/21/18 18:00 Laboratory Results 11/21/18 05:15 11/21/18 05:15 11/20/18 11/21/18 11/22/18 05:59 05:59 05:59 Intake Total 1615 1281 Output Total 550 320 Balance 1065 961 PT 27.6 SEC (12.0-15.0) H 11/21/18 05:15 INR 2.74 (0.83-1.16) H 11/21/18 05:15 ICD10 Worksheet Patient Problems: Problems Problem Status Onset Aneurysm of infrarenal abdominal aorta Acute Dissecting aneurysm of thoracic aorta, [place] type B Acute Cellulitis of right lower extremity Acute Mass of right thigh Acute
--- NOTE | 2018-11-21 18:45 | GCON ---
[f rep st] CONSULTATION PULMONARY CRITICAL CARE CONSULTATION DATE OF CONSULTATION: 11/21/2018 HISTORY OF PRESENT ILLNESS: This patient is a 68-year-old male with a history of remote aortic and m itral valve replacement, as well as a more recent abdominal aortic aneurysm. He recently underwent a n endovascular repair and developed back pain following the procedure, but this was thought to be brittaney ign at the time; in followup in clinic; however, he reported ongoing back pain. A CT angiogram revea led a retrograde aortic dissection, and he was admitted for ongoing management. He was evaluated bot h by Interventional Radiology, as well as CT Surgery, and both agreed that medical management was the best plan, including maintaining a low blood pressure, holding his warfarin, and avoiding strenuous activity. He was started on nicardipine drip, which seemed to help somewhat overnight, but was chall enging in the morning in that the drip was at its maximum. He had not required much trouble in the p ast for this issue. His back pain has subsequently resolved and his review of systems otherwise nega tive. PAST MEDICAL HISTORY: Includes atrial fibrillation, BPH. PAST SURGICAL HISTORY: Includes aortic valve repair, mitral valve repair, AAA as described above, fe moral-popliteal in the past, cholecystectomy as well. SOCIAL HISTORY: He is a nonsmoker. No significant alcohol or IV drug use. FAMILY HISTORY: Includes coronary artery disease. MEDICATIONS: Include Tylenol, [place], Norvasc, Ancef, Bentyl, Neurontin, Dilaudid, Ativan p.r.n., met oprolol p.r.n., nicardipine, Zofran, oxycodone, Phenergan, Flomax. PHYSICAL EXAM: VITAL SIGNS: He was afebrile at time my evaluation with a blood pressure 118/64, hea rt rate 69, respirations 20, oxygen saturation 94% on room air. GENERAL: He is awake, alert, orient ed x3, able to speak in full sentences without using accessory muscles for breathing. HEENT: Pupils equally round and reactive to light nonicteric, noninjected. Mucous membranes are moist without wilner thema or exudate. NECK: Was supple without adenopathy or jugular vein distention. LUNGS: Breath s ounds were distant, but clear to auscultation bilaterally without wheezes rubs or rales. HEART: Reg ular rate and rhythm without obvious murmurs. ABDOMEN: Soft, nontender, nondistended without hepato splenomegaly. EXTREMITIES: Showed a left groin hematoma and different size of his left calf than hi s right calf, but was otherwise warm and dry and without edema. NEUROLOGIC: Nonfocal, including scrap baller nial nerves, deep tendon reflexes. SKIN: Warm and dry without evidence of rash. LABORATORY/IMAGING: Objective data, includes a white count of 8.3, hematocrit 29, platelets of 246. Basic metabolic panel was unremarkable. INR was 2.5 yesterday, 2.7 today. ASSESSMENT/PLAN: 1. 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 My only recommendation today was to transition more toward beta ming to minimize shear stress and use a calcium channel ming as an adjunct to that. That has already started to occur and his nicardip ine drip is being reduced. His warfarin was held. I would defer to Surgery for reintroduction. 2. Atrial fibrillation is well controlled at this point with adequate rate. /[id number]/MODL
--- NOTE | 2018-11-21 19:15 | GCON ---
[f rep st] CONSULTATION HISTORY OF PRESENT ILLNESS: The patient is a 68-year-old male who presents with a thoracic aortic di ssection resulting from aortic stent graft. He has a rather large dissection, but no visceral arteri es are occluded, and he maintains a good peripheral flow to his legs. He will be admitted for observ ation, Surgery consultation and Interventional Radiology consultation. He presented over the last fe w days with back pain following his procedure approximately 10 days ago. He has been anticoagulated on a chronic basis, and he has does have bilateral groin hematomas. He is overall feeling well excep t for the back pain. ALLERGIES: None. MEDICATIONS: 1. Flomax. 2. Coumadin. 3. Bentyl. 4. Neurontin. PAST MEDICAL HISTORY: Includes: 1. Abdominal aortic aneurysm, endovascular repair. 2. Peripheral vascular disease. 3. BPH symptoms. 4. Atrial fibrillation. 5. Aortic valve replacement and mitral valve replacement. 6. Femoral-popliteal bypass in the past. 7. Cholecystectomy. FAMILY HISTORY: Noncontributory. SOCIAL HISTORY: Reveals he does not smoke. He is . REVIEW OF SYSTEMS: Negative on a full 10-point review except as related in the HPI and the Past Hist ory. PHYSICAL EXAMINATION: GENERAL: An alert 68-year-old male in no acute distress. HEAD and NECK: Rev eals no icterus. Pupils are normal. NECK: Supple, without bruits. There is no adenopathy or thyro megaly. CHEST: Clear and symmetric. CARDIAC: Regular rhythm, with a systolic murmur. ABDOMEN: S oft and nontender. : Genitalia normal. EXTREMITIES: Reveal full range of motion, full pulses. He has bilateral groin hematomas and well-healing groin incisions bilaterally. NEUROLOGIC: Physiologi c and symmetric. PSYCH: Reveals him to be alert, cooperative, and oriented. SKIN: Intact and warm, wi th no major abnormalities except for postop ecchymosis in both groins. IMPRESSION: Aortic dissection on an anticoagulated patient. PLAN: Conservative management with blood pressure control. He probably cannot be reversed on his an ticoagulation because of his cardiac valves. Risks and options have been fully discussed. He will b e admitted to the hospital for IR and Cardiovascular consultations. /[id number]/MODL
[2018-11-22] MEDS: ceFAZolin 2 GM/DEXTROSE 100 ML IV SCH ×3 (05:30→20:31)
[2018-11-22 05:54] LABS: INR 2.78 (0.83-1.16); PROTIME(PATIENT) 27.9 SEC (12.0-15.0)
[2018-11-22] MEDS: TAMSULOSIN HCL 0.4 MG CAP PO SCH (09:12)
[2018-11-22] MEDS: GABAPENTIN 300 MG CAP PO SCH ×2 (09:13→20:31)
--- NOTE | 2018-11-22 09:20 | SOAPPROG ---
LUCERO Progress Note Assessment/Plan: Assessment/Plan: 68 Y M AAA found incidentally on w/u for VH, s/p AAA stent graft repair c femoral a. exposures and closures at prior admission now with thoracic aortic dissection. Chronically anticoagulated. +cardiac valves. Small B groin hematomas. Back pain has resolved. Appreciate CT surgery and IR input and care. Conservative management being pursued with BP control and observation. Per Dr. Pena, leave groin deborah in for another week. +Daily dressing changes until dry. Seen with Dr. Cotto and Taryn UNIVERSITY RELATIONS RECRUITER today, and with Dr. Pena last evening. S: back pain resolved. smiling. no complaints. O: alert, nad ctab rrr abd soft, +reducible VH. palpable pedal pulses, feet warm 11/22/18 09:16 Objective: Vital Signs Temp Pulse Resp BP Pulse Ox 36.7 C 65 19 117/70 98 11/22/18 08:00 11/22/18 08:00 11/22/18 08:00 11/22/18 08:00 11/22/18 08:00 Laboratory Results 11/22/18 05:20 11/21/18 05:15 11/21/18 11/22/18 11/23/18 05:59 05:59 05:59 Intake Total 1615 1718 Output Total 550 820 Balance 1065 898 PT 27.9 SEC (12.0-15.0) H 11/22/18 05:20 INR 2.78 (0.83-1.16) H 11/22/18 05:20 ICD10 Worksheet Patient Problems: Problems Problem Status Onset Aneurysm of infrarenal abdominal aorta Acute Dissecting aneurysm of thoracic aorta, [place] type B Acute Cellulitis of right lower extremity Acute Mass of right thigh Acute
[2018-11-22] MEDS ORDERED: hydrALAZINE 20 MG/ML VIAL IVP ONE ×2 (14:04→19:30)
--- NOTE | 2018-11-22 15:25 | HOSPPROG ---
Hospitalist Progress Note Assessment/Plan: Dissecting aneurysm of thoracic aorta, Tyree type B (Acute) Aneurysm of infrarenal abdominal aorta (Acute) 68 yo M with hx of VHD, AF, AAA s/p endovascular repair on 11/10 presenting with back pain and found to have Coffey B dissection # Coffey B dissection: - Extending from immediately above recently placed graft to the left subclavian artery, small endoleak previously appreciated appears stable. - CT surgery, IR consulted who recommend no surgical intervention, they believe will ultimately heal - Aggressive BP management with goal BP < 120/80, -started on nicardipine gtt, started Metoprolol 12.5 mg BID and Amlodipine 10 mg qd on 11/21, however patient became bradycardic with concerning pauses - Discussed with Cardiology, Dr. Madsen this AM, who recommended avoiding B- Blockers in setting of bradycardia and pauses on AV carmen blocking agent - Will resume Amlodipine with PRN Hydralazine - Cefazolin ordered by Surgery for possible surgical site cellulitis, will transition to keflex upon d/c # back pain: Improved, likely due to above, pain is improving and patient would like to avoid narcotics if able, continue to monitor, pain meds prn # VHD: with mechanical mitral and aortic valves, no e/o acute decompensation currently, goal INR 2.5-3.5 and currently at goal (2.7 this AM), will resume home coumadin given lack of surgical intervention # a fib: rate controlled, on AC as above, no rate controlling meds, d/c Metoprolol as above # IP status Subjective: Pt reports no bakc pain this AM Objective: Vital Signs Temp Pulse Resp BP Pulse Ox 37.0 C 67 16 114/48 L 91 L 11/22/18 12:00 11/22/18 14:40 11/22/18 14:00 11/22/18 14:40 11/22/18 14:00 Laboratory Results 11/22/18 05:20 11/21/18 05:15 11/21/18 11/22/18 11/23/18 05:59 05:59 05:59 Intake Total 1615 1718 Output Total 550 820 500 Balance 1065 898 -500 PT 27.9 SEC (12.0-15.0) H 11/22/18 05:20 INR 2.78 (0.83-1.16) H 11/22/18 05:20 - Physical Exam Constitutional: no apparent distress Eyes: PERRL Ears, Nose, Mouth, Throat: moist mucous membranes Cardiovascular: irregularly irregular Respiratory: no respiratory distress Gastrointestinal: soft, non-tender abdomen Skin: warm Musculoskeletal: full muscle strength Neurologic: AAOx3 Psychiatric: interacting appropriately ICD10 Worksheet Patient Problems: Problems Problem Status Onset Aneurysm of infrarenal abdominal aorta Acute Dissecting aneurysm of thoracic aorta, [place] type B Acute Cellulitis of right lower extremity Acute Mass of right thigh Acute
--- NOTE | 2018-11-22 15:31 | PDINTPN ---
Printing Plate Clerk Progress Note Assessment/Plan: 68 M with remote AVR and MVR found to have enlarging AAA and required endovascular graft complicated by back pain. 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 He was admitted for observation and BP control. * Aortic dissection- attempted beta-blockade as primary medical management, but developed significant pause. He reported similar episodes on the remote past. Will resume focus on second line such as calcium channel blockers and watch rate. * Atrial fibrillation- he has had slow afib for several years without need for medical rate control. Likely contributing to his issues overnight. * Subjective: stable util late pm when developed significant pause on tele. Beta ming dc' d. Asymptomatic Objective: Vital Signs Temp Pulse Resp BP Pulse Ox 37.0 C 67 16 114/48 L 91 L 11/22/18 12:00 11/22/18 14:40 11/22/18 14:00 11/22/18 14:40 11/22/18 14:00 Laboratory Results 11/22/18 05:20 11/21/18 05:15 11/21/18 11/22/18 11/23/18 05:59 05:59 05:59 Intake Total 1615 1718 Output Total 550 820 500 Balance 1065 898 -500 PT 27.9 SEC (12.0-15.0) H 11/22/18 05:20 INR 2.78 (0.83-1.16) H 11/22/18 05:20 Physical Exam - Physical Exam General Appearance: WD/WN, alert, no apparent distress EENT: PERRL/EOMI Neck: supple Respiratory: lungs clear, normal breath sounds, decreased breath sounds, No respiratory distress, No accessory muscle use Cardiac/Chest: irregularly irregular, No edema, No JVD Abdomen: non-tender, soft, No distended Skin: normal color, warm/dry, No cyanosis Lymphatic: no adenopathy Extremities: No pedal edema Neuro/Psych: alert, normal mood/affect, oriented x 3 ICD10 Worksheet Patient Problems: Problems Problem Status Onset Aneurysm of infrarenal abdominal aorta Acute Dissecting aneurysm of thoracic aorta, [place] type B Acute Cellulitis of right lower extremity Acute Mass of right thigh Acute
[2018-11-22] MEDS ORDERED: WARFARIN SODIUM 5 MG TAB PO SCH (16:00)
[2018-11-22] MEDS: WARFARIN SODIUM 5 MG TAB PO SCH (16:52)
[2018-11-23] MEDS: ceFAZolin 2 GM/DEXTROSE 100 ML IV SCH ×3 (04:44→21:13)
[2018-11-23] MEDS ORDERED: hydrALAZINE 20 MG/ML VIAL ONE (05:05)
[2018-11-23] MEDS ORDERED: hydrALAZINE 20 MG/ML VIAL IVP ONE (05:15)
[2018-11-23 07:08] LABS: INR 2.81 (0.83-1.16); PROTIME(PATIENT) 28.2 SEC (12.0-15.0)
[2018-11-23] MEDS: GABAPENTIN 300 MG CAP PO SCH ×2 (08:33→21:02)
[2018-11-23] MEDS: TAMSULOSIN HCL 0.4 MG CAP PO SCH (08:33)
[2018-11-23] MEDS: LISINOPRIL 20 MG TAB PO SCH (09:42)
--- NOTE | 2018-11-23 10:41 | SOAPPROG ---
LUCERO Progress Note Assessment/Plan: Assessment/Plan: 68 Y M AAA found incidentally on w/u for VH, s/p AAA stent graft repair c femoral a. exposures and closures at prior admission now with thoracic aortic dissection. Chronically anticoagulated. +cardiac valves. Cardiothoracic surgery input appreciated. Continue aggressive blood pressure control and observation. No surgical intervention indicated at this time. Small B groin hematomas with slight surrounding erythema. Improving. Could be bruising as opposed to erythema. Recommend abx given endovascular graft in place. Continue IV Ancef while inpatient and transition to oral Keflex upon discharge. Back pain: Resolved. Dispo: ok to be discharged from General/Vascular surgery standpoint when cleared by CT surgery. Follow up in Dr. Pena' office next week. Will remove deborah at that time. Change dressing prior to discharge. Seen and examined with Dr. Cotto. S: Sitting up in chair. No complaints. O: Alert Afebrile RRR CTAB, no increased WOB Abdomen soft, nontender, large reducible hernia present Bilateral groins: incisions well dressed. Erythema surrounding each incision improving +pedal pulses, feet warm. 11/23/18 10:34 Objective: Vital Signs Temp Pulse Resp BP Pulse Ox 36.7 C 76 19 116/58 L 97 11/23/18 08:00 11/23/18 08:00 11/23/18 08:00 11/23/18 08:00 11/23/18 08:00 Laboratory Results 11/23/18 05:02 11/21/18 05:15 11/22/18 11/23/18 11/24/18 05:59 05:59 05:59 Intake Total 1718 1349 Output Total 820 1270 Balance 898 79 PT 28.2 SEC (12.0-15.0) H 11/23/18 05:02 INR 2.81 (0.83-1.16) H 11/23/18 05:02 ICD10 Worksheet Patient Problems: Problems Problem Status Onset Aneurysm of infrarenal abdominal aorta Acute Dissecting aneurysm of thoracic aorta, [place] type B Acute Cellulitis of right lower extremity Acute Mass of right thigh Acute
[2018-11-23] MEDS ORDERED: DOCUSATE SODIUM 100 MG CAP PO PRN (11:53)
[2018-11-23] MEDS ORDERED: BISACODYL 10 MG SUPP PR PRN (12:28)
[2018-11-23] MEDS ORDERED: LACTULOSE 20 GM/30 ML UDCUP PO PRN (12:28)
[2018-11-23] MEDS ORDERED: POLYETHYLENE GLYCOL 3350 17 GM PKT PO PRN (12:28)
[2018-11-23] MEDS ORDERED: MAGNESIUM HYDROXIDE 30 ML UDCUP PO PRN (12:28)
--- NOTE | 2018-11-23 13:37 | PDINTPN ---
Digital Solution Architect Progress Note Assessment/Plan: 68 M with remote AVR and MVR found to have enlarging AAA and required endovascular graft complicated by back pain. 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 He was admitted for observation and BP control. * Aortic dissection- attempted beta-blockade as primary medical management, but developed significant pause. He reported similar episodes on the remote past. Will resume focus on second line such as calcium channel blockers and watch rate. Currently borderline control without drip. Add HARI. * Atrial fibrillation- he has had slow afib for several years without need for medical rate control. Likely contributing to his issues overnight. * dispo- given mild lability of BP would hold dc home until tomorrow 11/23/18 13:35 Subjective: no events, feels well Objective: Vital Signs Temp Pulse Resp BP Pulse Ox 36.7 C 72 19 114/67 95 11/23/18 08:00 11/23/18 12:00 11/23/18 12:00 11/23/18 12:00 11/23/18 12:00 Laboratory Results 11/23/18 05:02 11/21/18 05:15 11/22/18 11/23/18 11/24/18 05:59 05:59 05:59 Intake Total 1718 1349 Output Total 820 1270 100 Balance 898 79 -100 PT 28.2 SEC (12.0-15.0) H 11/23/18 05:02 INR 2.81 (0.83-1.16) H 11/23/18 05:02 Physical Exam - Physical Exam General Appearance: alert, no apparent distress, thin EENT: PERRL/EOMI Neck: supple Respiratory: lungs clear, normal breath sounds, respiratory distress Cardiac/Chest: irregularly irregular, No edema, No JVD, No bradycardia, No tachycardia Abdomen: non-tender, soft, No distended Skin: normal color, warm/dry, No cyanosis Lymphatic: no adenopathy Extremities: No pedal edema Neuro/Psych: alert, normal mood/affect, oriented x 3 ICD10 Worksheet Patient Problems: Problems Problem Status Onset Aneurysm of infrarenal abdominal aorta Acute Dissecting aneurysm of thoracic aorta, [place] type B Acute Cellulitis of right lower extremity Acute Mass of right thigh Acute
--- NOTE | 2018-11-23 15:26 | HOSPPROG ---
Hospitalist Progress Note Assessment/Plan: Dissecting aneurysm of thoracic aorta, [place] type B (Acute) Aneurysm of infrarenal abdominal aorta (Acute) 68 yo M with hx of VHD, AF, AAA s/p endovascular repair on 11/10 presenting with back pain and found to have [place] B dissection # [place] B dissection: - Extending from immediately above recently placed graft to the left subclavian artery, small endoleak previously appreciated appears stable. - CT surgery, IR consulted who recommend no surgical intervention, they believe will ultimately heal - Aggressive BP management with goal BP < 120/80, -started on nicardipine gtt, started Metoprolol 12.5 mg BID and Amlodipine 10 mg qd on 11/21, however patient became bradycardic with concerning pauses - Required multiple pushes of IV Hydralazine overnight to maintain BP goal, added Lisinopril 20 mg this AM - Discussed with Cardiology, Dr. Madsen, who recommended avoiding B-Blockers in setting of bradycardia and pauses on AV carmen blocking agent - Cefazolin ordered by Surgery for possible surgical site cellulitis, will transition to keflex upon d/c per surgery # back pain: Improved, likely due to above, pain is improving and patient would like to avoid narcotics if able, continue to monitor, pain meds prn # VHD: with mechanical mitral and aortic valves, no e/o acute decompensation currently, goal INR 2.5-3.5 and currently at goal (2.7 this AM), will resume home coumadin given lack of surgical intervention # a fib: rate controlled, on AC as above, no rate controlling meds, d/c Metoprolol as above # IP status Subjective: Pt report no complaints this AM Objective: Vital Signs Temp Pulse Resp BP Pulse Ox 36.7 C 72 19 114/67 95 11/23/18 08:00 11/23/18 12:00 11/23/18 12:00 11/23/18 12:00 11/23/18 12:00 Laboratory Results 11/23/18 05:02 11/21/18 05:15 11/22/18 11/23/18 11/24/18 05:59 05:59 05:59 Intake Total 1718 1349 Output Total 820 1270 100 Balance 898 79 -100 PT 28.2 SEC (12.0-15.0) H 11/23/18 05:02 INR 2.81 (0.83-1.16) H 11/23/18 05:02 - Physical Exam Constitutional: no apparent distress Eyes: PERRL Ears, Nose, Mouth, Throat: moist mucous membranes Cardiovascular: irregularly irregular Respiratory: no respiratory distress Gastrointestinal: soft, non-tender abdomen Skin: warm Musculoskeletal: full muscle strength Neurologic: AAOx3 Psychiatric: interacting appropriately ICD10 Worksheet Patient Problems: Problems Problem Status Onset Aneurysm of infrarenal abdominal aorta Acute Dissecting aneurysm of thoracic aorta, [place] type B Acute Cellulitis of right lower extremity Acute Mass of right thigh Acute
--- NOTE | 2018-11-23 15:45 | ASMTCMCOM ---
CM Note CM Note Notes: CM met with pt. Therapy's recommend Home Health Care. Pt refuses Home Health Care at this time. Pt lives with supportive . When medically stable will discharge independently. CM available for changes. Plan: Independent Date Signed: 11/23/2018 03:44 PM Electronically Signed By:Taryn Baires
[2018-11-23] MEDS: WARFARIN SODIUM 5 MG TAB PO SCH (16:09)
[2018-11-23] MEDS: SENNOSIDES/DOCUSATE SODIUM TAB PO SCH (21:02)
[2018-11-24] MEDS ORDERED: CEPHALEXIN 500 MG CAP PO SCH (07:30)
[2018-11-24 07:40] LABS: INR 3.03 (0.83-1.16); PROTIME(PATIENT) 29.8 SEC (12.0-15.0)
[2018-11-24] MEDS: LISINOPRIL 20 MG TAB PO SCH (08:01)
[2018-11-24] MEDS: GABAPENTIN 300 MG CAP PO SCH (08:01)
[2018-11-24 08:02] VITALS: BP 118/65
[2018-11-24] MEDS: SENNOSIDES/DOCUSATE SODIUM TAB PO SCH (08:02)
[2018-11-24] MEDS: TAMSULOSIN HCL 0.4 MG CAP PO SCH (08:02)
--- NOTE | 2018-11-24 08:26 | HOSPPROG ---
Hospitalist Progress Note Assessment/Plan: DIAGNOSES: * Type B aortic dissection -good blood pressure control at this time on lisinopril, amlodipine * Back pain * recent repair of AAA * Valvular heart disease, mechanical aortic and mitral valves * AFib with chronic rate control on Coumadin therapeutic INR PLANS: SUBJECTIVE: OBJECTIVE Vitals reviewed: All stable without fever Subsurface Augmentee Elint Operator, my review: Exam: alert oriented skin warm dry color ok resps not labored lungs clear BSs heart regular abd soft nondistended nontender, bowel sounds present limbs warm, no edema iv site ok Lab data: INR 3.0 today has crept up slightly suspect due to antibiotics Objective: Vital Signs Temp Pulse Resp BP Pulse Ox 36.3 C 82 17 118/65 98 11/24/18 07:45 11/24/18 07:45 11/24/18 07:45 11/24/18 08:02 11/24/18 07:45 Laboratory Results 11/23/18 05:02 11/21/18 05:15 11/23/18 11/24/18 11/25/18 06:59 06:59 06:59 Intake Total 1349 50 Output Total 1270 600 125 Balance 79 -550 -125 PT 29.8 SEC (12.0-15.0) H 11/24/18 07:20 INR 3.03 (0.83-1.16) H 11/24/18 07:20 ICD10 Worksheet Patient Problems: Problems Problem Status Onset Aneurysm of infrarenal abdominal aorta Acute Dissecting aneurysm of thoracic aorta, [place] type B Acute Cellulitis of right lower extremity Acute Mass of right thigh Acute
[2018-11-24] MEDS: ceFAZolin 2 GM/DEXTROSE 100 ML IV SCH (08:43)
--- NOTE | 2018-11-24 09:01 | SOAPPROG ---
LUCERO Progress Note Assessment/Plan: Assessment/Plan: 68 Y M AAA found incidentally on w/u for VH, s/p AAA stent graft repair c femoral a. exposures and closures at prior admission now with thoracic aortic dissection. Chronically anticoagulated. +cardiac valves. Cardiothoracic surgery input appreciated. Continue aggressive blood pressure control and observation. No surgical intervention indicated at this time. Small B groin hematomas with slight surrounding erythema. Improving. Could be bruising as opposed to erythema. Recommend abx given endovascular graft in place. Continue IV Ancef while inpatient and transition to oral Keflex upon discharge. Back pain: Resolved. Dispo: ok to be discharged from General/Vascular surgery standpoint when cleared by CT surgery. Follow up in Dr. Pena' office next week. Will remove deborah at that time. Change dressing prior to discharge. Seen and examined with Dr. Cotto. S: Sitting up in chair. No complaints. O: Alert Afebrile RRR CTAB, no increased WOB Abdomen soft, nontender, large reducible hernia present Bilateral groins: R groin with deborah intact. Serous drainage. Dressing changed today. Erythema surrounding bilateral groin incisions improving +pedal pulses, feet warm 11/24/18 08:59 Objective: Vital Signs Temp Pulse Resp BP Pulse Ox 36.3 C 82 17 118/65 98 11/24/18 07:45 11/24/18 07:45 11/24/18 07:45 11/24/18 08:02 11/24/18 07:45 Laboratory Results 11/23/18 05:02 11/21/18 05:15 11/23/18 11/24/18 11/25/18 05:59 05:59 05:59 Intake Total 1349 50 Output Total 1270 600 325 Balance 79 -550 -325 PT 29.8 SEC (12.0-15.0) H 11/24/18 07:20 INR 3.03 (0.83-1.16) H 11/24/18 07:20 ICD10 Worksheet Patient Problems: Problems Problem Status Onset Aneurysm of infrarenal abdominal aorta Acute Dissecting aneurysm of thoracic aorta, [place] type B Acute Cellulitis of right lower extremity Acute Mass of right thigh Acute
--- NOTE | 2018-11-24 09:57 | PDDCSUM ---
Discharge Summary Discharge Summary: DISCHARGE DIAGNOSES: * Type B aortic dissection * Hypertension * Back pain due to dissection resolved * recent repair of AAA * Valvular heart disease, mechanical aortic and mitral valves; stable without heart failure at this time * AFib with chronic rate control on Coumadin therapeutic INR CONSULTANTS: Dr. Gregorio Hernandez PROCEDURES: CT scan of chest abdomen pelvis HOSPITAL COURSE SUMMARY: This patient who had a recent surgical repair of abdominal aortic aneurysm comes in with some back pain and is found have a Tyree type B thoracic aortic dissection. He was stable hemodynamically without signs of bleeding. He was seen by consultants from cardiothoracic surgery as well as General surgery. CT scan findings appeared favorable for good healing. He did have some higher blood pressures in these responded well to lisinopril and amlodipine here which will continue. He has had no signs of any further complications such as bleeding, further tear, embolism etc. At this point he is felt stable for discharge to home. He has ongoing wound management needs and will follow up in 3 days in clinic with Dr. Gregorio Pena. Examination today: Wide awake alert oriented Stable vital signs Skin warm and dry with good color Relaxed and comfortable appearing Breathing looks good Feet warm and well perfused with palpable pulses Surgical wound looks good PENDING TEST RESULTS: None MEDICATION CHANGES: Addition of lisinopril and amlodipine for blood pressure control He continues on his usual Coumadin He continues on Keflex which had been prescribed after his surgery last week FOLLOW-UP PLAN: With Dr. Gregorio Pena in 1 week Greater than 35 minutes bedside and care coordination time today
--- NOTE | 2018-11-24 10:21 | ASDISCHSUM ---
Discharge Information Plan Status:Home with No Needs Medically Cleared to Leave: Discharge Date: CM D/C Disposition:Home, Routine, Self-Care ADT D/C Disposition:Home Health Service Projected Discharge Date: Transportation at D/C:Family Discharge Delay Reason: Follow-Up Date: Discharge Slot: Final Diagnosis: Placement Information Patient Contact Information Contact Name:PAN Relationship: [facility] [place] Phone: [facility]/Zip Code:[place] [address] Email: Financial Information Financial Class:Medicare Primary Plan Desc:MEDICARE INPATIENT Primary Plan Number:[id number] Secondary Plan Desc:[facility] Secondary Plan Number:[id number] Assessment Information LACE LACE Length of stay for Answers: 4-6 days current admission Acuity / Level of Answers: Yes Care: Did the patient have an inpatient admission? Comorbidities - select Answers: Peripheral vascular all that apply disease Other Notes: AFib; VHD; AAA # of Emergency department Answers: 1-2 visits in the last 6 months Score: 10 Date Signed: 11/24/2018 10:19 AM Electronically Signed By:Mayi Rucker RN [facility] CM Progress Note CM Note CM Note Notes: Pt is a 68 yo M, presentes with dehydration and urinary tract infection. Pt underwent AAA and review of CT found retrograde aortic tear. At this time, no therapies are ordered. No surgery planned at this time. is at bedside supportive. Pt was living independently with prior to admission; last discharged independently from [facility] on 11/12. CM to follow. Date Signed: 11/21/2018 03:24 PM Electronically Signed By:MITRA Barba [facility] Progress Note CM Note CM Note Notes: CM met with pt. Therapy's recommend Home Health Care. Pt refuses Home Health Care at this time. Pt lives with supportive . When medically stable will discharge independently. CM available for changes. Plan: Independent Date Signed: 11/23/2018 03:44 PM Electronically Signed By:Taryn Baires Intervention Information
--- NOTE | 2018-11-24 13:49 | PDINTPN ---
Launch Check Out Progress Note Assessment/Plan: 68 M with remote AVR and MVR found to have enlarging AAA and required endovascular graft complicated by back pain. 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 He was admitted for observation and BP control. * Aortic dissection- attempted beta-blockade as primary medical management, but developed significant pause. He reported similar episodes on the remote past. Will resume focus on second line such as calcium channel blockers and watch rate. stable * Atrial fibrillation- he has had slow afib for several years without need for medical rate control. Likely contributing to his issues overnight. * dispo- dc home today if ok with surgery 11/23/18 13:35 11/24/18 13:48 Subjective: stable overnight Objective: Vital Signs Temp Pulse Resp BP Pulse Ox 36.3 C 82 17 118/65 98 11/24/18 07:45 11/24/18 07:45 11/24/18 07:45 11/24/18 08:02 11/24/18 07:45 Laboratory Results 11/23/18 05:02 11/21/18 05:15 11/23/18 11/24/18 11/25/18 05:59 05:59 05:59 Intake Total 1349 50 Output Total 1270 600 325 Balance 79 -550 -325 PT 29.8 SEC (12.0-15.0) H 11/24/18 07:20 INR 3.03 (0.83-1.16) H 11/24/18 07:20 Physical Exam - Physical Exam General Appearance: WD/WN, alert, no apparent distress EENT: PERRL/EOMI Neck: supple Respiratory: lungs clear, normal breath sounds, No respiratory distress, No accessory muscle use Cardiac/Chest: regular rate, rhythm, No edema Abdomen: normal bowel sounds, non-tender, soft, No distended Skin: normal color, warm/dry, No cyanosis Lymphatic: no adenopathy Extremities: No pedal edema Neuro/Psych: alert, normal mood/affect, oriented x 3 ICD10 Worksheet Patient Problems: Problems Problem Status Onset Aneurysm of infrarenal abdominal aorta Acute Cellulitis of right lower extremity Acute Dissecting aneurysm of thoracic aorta, Tyree type B Acute Mass of right thigh Acute
[2018-11-25] MEDS ORDERED: WARFARIN SODIUM 5 MG TAB PO SCH (16:00)
== END 2018-11-24 12:02 | disposition home or self-care (01) | DRG 301 ==
LOC: F2N 21:22
PROVIDERS: ADMIT Internal Medicine; ATTEND Internal Medicine
DX: I71.01 Dissection of thoracic aorta (principal); I10 Essential (primary) hypertension; I48.91 Unspecified atrial fibrillation; Z95.2 Presence of prosthetic heart valve; Z79.01 Long term (current) use of anticoagulants; Z86.14 Personal history of Methicillin resistant Staphylococcus aureus infection
CPT/HCPCS: 97116-GP; 97161-GP; 97165-GO; 97535-GO; J0360; J0690; Q9967